=== PATIENT | female | born 1935 | race Caucasian/White ===

== ENCOUNTER → 2016-12-26 | Outpatient (CLI) | payer MEDICARE, MEDICAID ==
[~2016-12-26] MED LIST: ADVAIR DIS14 PUFF/IN INH; ADVAIR HFA 230-28 GM INH; ALDACTONE25 MG PO; AMBIEN10 MG PO; CARDIZEM CD240 MG PO; CARDIZEM CD360 MG PO; DUONEB 3.0-0.5 M3 ML INH; ELIQUIS2.5 MG PO; FLONASE16 GM NASBOTH; LANOXIN125 MCG PO; LEVAQUIN750 MG PO; LEXAPRO20 M1 PO; LEXAPRO20 MG PO; LOTENSIN40 MG PO; MULTIVITAMINS1 EAC1 PO; NORVASC10 MG PO; PREDNISONE10 MG PO; PRILOSEC40 MG PO; TENORMIN50 MG PO; THERA M PLUS T1 EACH PO; TYLENOL325 MG PO; ULTRAM50 MG PO; VENTOLIN HFA8 GM INH; VESICARE5 MG PO
== END | disposition short-term general hospital (02) ==
LOC: CLUROL 12-12 04:58
DX: N39.41 Urge incontinence (principal); R35.0 Frequency of micturition; R35.1 Nocturia

== ENCOUNTER 2017-01-13 19:06 | Inpatient (IN) | payer MEDICARE, MEDICAID ==
[~2017-01-13] VITALS: Ht 160 cm; Wt 72.7 kg
[~2017-01-13 19:06] MED LIST changes: -ADVAIR DIS14 PUFF/IN INH; -CARDIZEM CD360 MG PO; -DUONEB 3.0-0.5 M3 ML INH; -LEVAQUIN750 MG PO; -LEXAPRO20 M1 PO; -PREDNISONE10 MG PO; -THERA M PLUS T1 EACH PO; -TYLENOL325 MG PO; -VESICARE5 MG PO
[2017-01-13] MEDS ORDERED: TYLENOL325 MG PO (23:57)
[2017-01-13] MEDS ORDERED: ADVAIR DIS14 PUFF/IN INH (23:57)
[2017-01-13] MEDS ORDERED: CARDIZEM CD360 MG PO (23:58)
[2017-01-13] MEDS ORDERED: VESICARE5 MG PO (23:59)
[2017-01-13] MEDS ORDERED: LEXAPRO20 M1 PO (23:59)
[2017-01-14] MEDS ORDERED: AMBIEN10 MG PO
[2017-01-15] MEDS ORDERED: DUONEB 3.0-0.5 M3 ML INH (12:36)
[2017-01-15] MEDS ORDERED: CARDIZEM CD360 MG PO (12:38)
[2017-01-15] MEDS ORDERED: ULTRAM50 MG PO (12:39)
[2017-01-15] MEDS ORDERED: TYLENOL325 MG PO (12:40)
[2017-01-15] MEDS ORDERED: LEXAPRO20 MG PO (12:43)
[2017-01-15] MEDS ORDERED: AMBIEN10 MG PO (12:44)
[2017-01-15] MEDS ORDERED: ADVAIR DIS14 PUFF/IN INH (12:46)
[2017-01-15] MEDS ORDERED: VESICARE5 MG PO (12:49)
[2017-01-15] MEDS ORDERED: THERA M PLUS T1 EACH PO (12:50)
[2017-01-15] MEDS ORDERED: LEVAQUIN750 MG PO (12:51)
[2017-01-15] MEDS ORDERED: PREDNISONE10 MG PO (12:51)
== END 2017-01-15 13:15 | disposition home health service (06) | DRG 190 ==
LOC: ER 19:06 → IP 23:15 → ER 23:15 → IP 01-15 13:15
PROVIDERS: ADMIT Family Medicine
DX: J44.0 Chronic obstructive pulmonary disease with (acute) lower respiratory infection (principal); J18.9 Pneumonia, unspecified organism; E07.9 Disorder of thyroid, unspecified; Z66 Do not resuscitate; R91.8 Other nonspecific abnormal finding of lung field; D64.9 Anemia, unspecified; G51.0 Bell's palsy; E03.9 Hypothyroidism, unspecified; I25.10 Atherosclerotic heart disease of native coronary artery without angina pectoris; F17.210 Nicotine dependence, cigarettes, uncomplicated
CPT/HCPCS: J1650; J1956; Q9967

== ENCOUNTER 2017-05-18 04:13 | Emergency (ER) | payer MEDICARE, MEDICAID ==
[~2017-05-18] VITALS: Ht 160 cm; Wt 68.0 kg
[~2017-05-18 04:13] MED LIST changes: +ADVAIR DIS14 PUFF/IN INH; +CARDIZEM CD360 MG PO; +DUONEB 3.0-0.5 M3 ML INH; +LEVAQUIN750 MG PO; +LEXAPRO20 M1 PO; +PREDNISONE10 MG PO; +THERA M PLUS T1 EACH PO; +TYLENOL325 MG PO; +VESICARE5 MG PO
== END 2017-05-18 12:00 | disposition short-term general hospital (02) ==
LOC: ER 04:13
DX: K43.6 Other and unspecified ventral hernia with obstruction, without gangrene (principal); F03.90 Unspecified dementia, unspecified severity, without behavioral disturbance, psychotic disturbance, mood disturbance, and anxiety; F32.9 Major depressive disorder, single episode, unspecified; K21.9 Gastro-esophageal reflux disease without esophagitis; I10 Essential (primary) hypertension; F17.210 Nicotine dependence, cigarettes, uncomplicated; Z88.8 Allergy status to other drugs, medicaments and biological substances; Z88.5 Allergy status to narcotic agent; Z79.899 Other long term (current) drug therapy; Z90.49 Acquired absence of other specified parts of digestive tract; Z98.890 Other specified postprocedural states; Z90.89 Acquired absence of other organs; Z90.710 Acquired absence of both cervix and uterus
CPT/HCPCS: J2270; J2405; Q9963; Q9967